=== PATIENT | male | born 1975 | race American Indian/Alaskan Native ===

== ENCOUNTER 2022-01-15 03:46 | Emergency (ER) | payer SELFPAY ==
[2022-01-15 05:19] LABS: BUN/Creatinine Ratio 21; Basophils # (Auto) 0.1 K/mm3 (0.0-0.1); Basophils % (Auto) 0.6 % (0.0-1.8); Blood Urea Nitrogen 19 mg/dL (9-20); Calcium 9.9 mg/dL (8.4-10.2); Eosinophils # (Auto) 0.1 K/mm3 (0.0-0.4); Eosinophils % (Auto) 1.1 % (0.0-4.3); Hematocrit 39.6 % (35.5-45.6); Hemoglobin 13.3 gm/dl (11.8-15.2); Hemolysis Index 23; Lymphocytes # (Auto) 2.8 K/mm3 (1.2-5.4); Mean Corpuscular HGB Conc 34 % (32-34); Mean Corpuscular Volume 92 fl (84-94); Monocytes % (Auto) 10.5 % (0.0-7.3); Platelet Count 260 K/mm3 (140-440); Red Blood Count 4.28 M/mm3 (3.65-5.03); Red Cell Distribution Width 14.8 % (13.2-15.2)
--- NOTE | 2022-01-15 09:43 | Consultation ---
History of Present Illness - Reason for Consult Consult date: 01/15/22 Reason for consult: SI - History of Present Psychiatric Illness The patient was seen today. He is a 46y/o male who presents for SI. The patient is calm and cooperative. The patient says he has a lot of relationship problems and drug problems. He says he does Cocaine "but that's not really a problem." It appears that he has no where to go. He says he was staying his girlfriend's house. I ask him if he go put out, he says he left because he doesn't like the people at the apartment complex. The patient says I'm tired of going through that with her. I ask him is that what makes him suicidal, he says "yea, probably so." The patient states he was just at [facility] and released last Saturday, he says "for the exact same thing." The patient denies hallucinations of any kind. The patient does not remember any of his psych diagnoses. He says they started him on Seroquel and Wellbutrin. Will not recommend psychiatric inpatient treatment for this patient. He was just treated at [facility] less than a week. The patient can be treated on an outpatient basis. REVIEW OF SYSTEMS Constitutional: Negative for weight loss ENT: Negative for stridor Respiratory: Negative for cough or hemoptysis All other systems reviewed and are negative MENTAL STATUS EXAMINATION General Appearance and Behavior: Age appropriate, wearing appropriate clothes, cooperative, calm Cooperation: cooperative Psychomotor Behavior: Psychomotor normal Mood: alright Affect and affective range: congruent with stated affect Thought Process: within reality Thought Content: None Speech: Normal volume, Regular rate and rhythm Suicidal Ideation: Denies Homicidal Ideation: Denies Hallucination: Denies Delusions: Denies Impulse Control: Normal Insight and Judgment: Limited Memory: Limited Attention: Attentive Orientation: a/o x 3 Diagnoses: Cocaine Use Disorder Major Depressive Disorder Treatment Plan d/c 1013 Continue meds prescribed by [facility]: per primary Sitter: defer to primary Disposition: Do not recommend acute psychiatric inpatient treatment The sane rn to give the patient all necessary outpatient resources Will sign off. Thanks Case staffed with Dr. Ku Medications and Allergies Allergies Allergy/AdvReac Type Severity Reaction Status Date / Time gabapentin Allergy Unknown Verified 01/15/22 03:57 Mental Status Exam - Vital signs Last Vital Signs Temp 98 F 01/15/22 04:00 Pulse 94 H 01/15/22 04:00 Resp 18 01/15/22 04:00 BP 124/75 01/15/22 04:00 Pulse Ox 97 01/15/22 04:00 Results Result Diagrams: 01/15/22 04:20 01/15/22 04:20 Abnormal lab results 01/15/22 01/15/22 01/15/22 Range/Units 04:20 04:20 04:20 [place] % (Auto) 10.5 H (0.0-7.3) % [place] # (Auto) 1.0 H (0.0-0.8) K/mm3 Salicylates < 0.3 L (2.8-20.0) mg/dL Acetaminophen 5.0 L (10.0-30.0) ug/mL All other labs normal.
[2022-01-15 10:46] VITALS: BP 100/61
--- NOTE | 2022-01-15 10:46 | Emergency Department Report ---
ED Psych HPI - General Chief Complaint: Psych Stated Complaint: SUICIDAL IDEATIONS Time Seen by Provider: 01/15/22 06:18 Source: patient Mode of arrival: Ambulatory - History of Present Illness Initial Comments: pt dropped by police department for attempting to jump in front of their vehicle, pt reported to police that he wanted to MD Complaint: suicidal ideation, feels depressed -: Gradual, hour(s) Associated Psychiatric Symptoms: suicidal ideation History of same: No Quality: intermittent Improves With: none Worsens With: none - Related Data Allergies Allergy/AdvReac Type Severity Reaction Status Date / Time gabapentin Allergy Unknown Verified 01/15/22 03:57 ED Review of Systems ROS: Stated complaint: SUICIDAL IDEATIONS Other details as noted in HPI Constitutional: denies: chills, fever Eyes: denies: eye pain, eye discharge, vision change ENT: denies: ear pain, throat pain Respiratory: denies: cough, shortness of breath, wheezing Cardiovascular: denies: chest pain, palpitations Endocrine: no symptoms reported Gastrointestinal: denies: abdominal pain, nausea, diarrhea Genitourinary: denies: urgency, dysuria Musculoskeletal: denies: back pain, joint swelling, arthralgia Skin: denies: rash, lesions Neurological: denies: headache, weakness, paresthesias Psychiatric: denies: anxiety, depression Hematological/Lymphatic: denies: easy bleeding, easy bruising ED Past Medical Hx - Past Medical History Previous Medical History?: No Hx Hypertension: No - Social History Smoking Status: Never Smoker Substance Use Type: None ED Physical Exam - General Limitations: No Limitations General appearance: alert, anxious - Head Head exam: Present: atraumatic, normocephalic - Eye Eye exam: Present: normal appearance - ENT ENT exam: Present: mucous membranes moist - Neck Neck exam: Present: normal inspection - Respiratory Respiratory exam: Present: normal lung sounds bilaterally. Absent: respiratory distress - Cardiovascular Cardiovascular Exam: Present: regular rate, normal rhythm. Absent: systolic murmur, diastolic murmur, rubs, gallop - GI/Abdominal GI/Abdominal exam: Present: soft, normal bowel sounds - Rectal Rectal exam: Present: deferred - Extremities Exam Extremities exam: Present: normal inspection - Back Exam Back exam: Present: normal inspection - Neurological Exam Neurological exam: Present: alert, oriented X3 - Psychiatric Psychiatric exam: Present: normal affect, normal mood - Skin Skin exam: Present: warm, dry, intact, normal color. Absent: rash ED Course Vital Signs 01/15/22 04:00 Temperature 98 F Pulse Rate 94 H Respiratory 18 Rate Blood Pressure 124/75 O2 Sat by Pulse 97 Oximetry ED Medical Decision Making - Lab Data Result diagrams: 01/15/22 04:20 01/15/22 04:20 Critical care attestation.: If time is entered above; I have spent that time in minutes in the direct care of this critically ill patient, excluding procedure time. ED Disposition Clinical Impression: Depression, Suicidal ideation Disposition: 01 HOME / SELF CARE / HOMELESS Is pt being admited?: No Does the pt Need Aspirin: No Condition: Stable Referrals: ROSALBA GREEN MD [Primary Care Provider] - 3-5 Days
== END 2022-01-15 13:53 | disposition home or self-care (01) ==
LOC: ED 03:46
DX: F32.9 Major depressive disorder, single episode, unspecified (principal); R45.851 Suicidal ideations; Z88.8 Allergy status to other drugs, medicaments and biological substances; Z79.899 Other long term (current) drug therapy
CPT/HCPCS: 36415; 80048; 80320; 85025; 99283; G0480